=== PATIENT | male | born 1975 | race African-American/Black ===

== ENCOUNTER 2016-10-05 15:05 | Emergency (ER) | payer OTHER ==
[~2016-10-05] VITALS: Ht 165.1 cm; Wt 88.0 kg
[2016-10-05 15:12] VITALS: TEMP 36.9; Ht 165.1 cm; Wt 88.0 kg
[2016-10-05] MEDS ORDERED: GLIP10TA9 PO (15:28)
[2016-10-05] MEDS ORDERED: METF-384 PO (15:28)
[2016-10-05] MEDS ORDERED: SODIUM CHLORIDE 0.9% 1000ML 1,000 ML IV STA (15:31)
[2016-10-05] MEDS ORDERED: ACETAMINOPHEN 500 MG TAB PO STA (15:53)
[2016-10-05 16:05] LABS: BASO % 0.1 %; BASO ABS # 0.02 K/uL (0-0.2); COMPLETE YES; EOS % 0.1 %; HEMATOCRIT 42.9 % (42-52); IG% 0.4 %; LYMPH % 8.4 %; LYMPH ABS # 1.16 K/uL (1.2-3.4); MEAN CELL VOLUME 91.9 fL (80-100); MEAN CORPUSCULAR HEMOGLOBIN 31.5 pg (25-34); MEAN CORPUSCULAR HGB CONC 34.3 g/dl (32-36); MEAN PLATELET VOLUME 10.8 fL (7.4-10.4); PLATELET COUNT 315 K/uL (130-400); RED BLOOD COUNT 4.67 M/uL (4.7-6.1)
--- NOTE | 2016-10-05 16:11 | DIAGNOSTIC IMAGING REPORT ---
CT SCAN OF THE BRAIN WITHOUT IV CONTRAST CLINICAL HISTORY: Syncope. Head injury. COMPARISON STUDY: No priors. TECHNIQUE: Unenhanced axial CT scan of the brain is performed from the vertex to the skull base. Automated dose control exposure was utilized. CT DOSE: 786.10 mGy.cm FINDINGS: Brain parenchyma: The brain parenchyma is normal in appearance. There is no hemorrhage, mass effect, or evidence of acute territorial ischemia by CT criteria. Sotelo-white matter is preserved. No extra-axial fluid collection is seen. Ventricles, sulci, cisterns: Normal in configuration. Intracranial vasculature: The visualized intracranial vasculature at the skull base is normal in appearance. Calvarium: There is no depressed calvarial fracture. Soft tissues: Left facial soft tissue injury is partially visualized. A posterior scalp contusion is also identified. Sinuses and mastoids: There is subtotal opacification of the left maxillary antrum and several left ethmoid sinuses. A large air-fluid level is seen in the right maxillary antrum. The mastoid air cells are well pneumatized. Orbits: A left orbital floor fracture is suspected. The right orbits is intact as visualized. There are bilateral nasal bone fractures. IMPRESSION: 1. No acute intracranial abnormality. 2. There is no depressed calvarial fracture. 3. Suspect a left orbital floor fracture as well as bilateral nasal bone fractures. See report of CT scan of the facial bones performed concurrently for detailed facial bone findings. Electronically signed by: Julio Cesar Brown M.D. 10/05/2016 4:09 PM Dictated Date/Time: 10/05/2016 4:05 PM
[2016-10-05 16:21] LABS: ALT/SGPT 51 U/L (12-78); AST/SGOT 40 U/L (15-37); BLOOD UREA NITROGEN 10 mg/dl (7-18); BUN/CREATININE RATIO 10.2 (10-20); CALCIUM 9.3 mg/dl (8.5-10.1); CARBON DIOXIDE 32 mmol/L (21-32); CHLORIDE 104 mmol/L (98-107); CREATININE 0.99 mg/dl (0.60-1.40); GLUCOSE 172 mg/dl (70-99); MAGNESIUM 1.9 mg/dl (1.8-2.4); POTASSIUM 4.4 mmol/L (3.5-5.1); SODIUM 142 mmol/L (136-145)
--- NOTE | 2016-10-05 16:26 | DIAGNOSTIC IMAGING REPORT ---
CT SCAN OF THE FACIAL BONES WITHOUT IV CONTRAST CLINICAL HISTORY: Syncope. Nasal injury. COMPARISON STUDY: CT of the brain performed concurrently on 10/05/2016. TECHNIQUE: High-resolution CT scan of the facial bones is performed. Images are reviewed in the axial, sagittal, and coronal planes. IV contrast was not administered for this examination. CT DOSE: Reported separately under the concurrently performed CT scan of the brain. FINDINGS: The skeletal structures are well mineralized. There are minimally depressed and comminuted bilateral nasal bone fractures with overlying soft tissue edema. The bony nasal septum appears intact. There is a minimally depressed left orbital floor fracture. There is no herniation of orbital contents. Comminuted fracture also involves the lateral wall of the left orbit and extends through the anterior aspect of the zygomatic arch. There is also a nondistracted fracture of the mid left zygomatic arch. There is also likely fracture of the left lamina papyracea. There is comminuted fracture involving the anterior, medial, and posterior wall of the left maxillary antrum. The right bony orbit appears intact. There is trace stranding seen within the inferior extraconal fat of the left orbit, likely represent trace orbital hematoma. Orbital contents are otherwise normal in appearance. Comminuted fractures are seen involving the anterior, medial, and lateral mullen of the right maxillary antrum. There are minimally distracted fractures of the medial and lateral pterygoid plates on the right. The left pterygoid plates are preserved. The right zygomatic arch is maintained. There is fracture through the anterior alveolar ridge of the maxilla and through the base of the nasal processes of the maxilla. The mandible is intact. The central maxillary incisors are absent, as are the left central and lateral mandibular incisors. There is subtotal opacification of the left maxillary antrum, likely representing blood products. Blood is also seen within the right maxillary antrum with an air-fluid level. Fluid is seen within several left ethmoid sinuses. The mastoid air cells are well pneumatized. The visualized calvarium and upper cervical spine are maintained. Partially imaged brain parenchyma is within normal limits. An indeterminant linear metallic foreign body is seen along the interior margin the mandible. There is left temporal, left periorbital, and left premalar soft tissue contusion/hematoma. Small foci of subcutaneous gas are likely related to sinus fracture. Premalar contusion is also seen on the right. IMPRESSION: 1. There are comminuted and minimally depressed nasal bone fractures. 2. There is a complex left orbital fracture which involves the inferior, medial, and lateral mullen. 3. There is trace stranding suggested within the inferior extraconal fat of the left orbit which may represent trace orbital hematoma. 4. The right orbit is intact. 5. There are comminuted fractures involving the anterior, medial, and lateral mullen of both maxillary antra. Blood is present within both maxillary antra. 6. There are fractures of the left zygomatic arch. 7. There are minimally distracted fractures of the medial and lateral right pterygoid plates. 8. There is a minimally distracted fracture through the anterior alveolar ridge of the maxilla, as well as to the base of the nasal processes of the maxilla. 9. Facial soft tissue injuries/hematoma as above, left greater than right. 10. Several of the maxillary and mandibular incisors are absent as detailed above. This is of indeterminant chronicity. Clinical correlation will be required. 11. An indeterminant metallic wire is seen along the interior margin of the mandible. This may be related to previous dental surgery. Clinical correlation will be required. Electronically signed by: Julio Cesar Brown M.D. 10/05/2016 4:24 PM Dictated Date/Time: 10/05/2016 4:05 PM
[2016-10-05 16:32] LABS: ALB/GLOB RATIO 1.3 (0.9-2); ALKALINE PHOSPHATASE 61 U/L (45-117); THYROID STIMULATING HORMONE 0.314 uIu/ml (0.300-4.500)
--- NOTE | 2016-10-05 16:44 | DIAGNOSTIC IMAGING REPORT ---
SINGLE VIEW CHEST CLINICAL HISTORY: Syncope. FINDINGS: An AP, portable, upright chest radiograph is obtained. No prior studies are available for comparison at the time of dictation. The examination is degraded by portable technique and patient rotation. The cardiomediastinal silhouette is unremarkable. The lungs and pleural spaces are clear. No pneumothorax is seen. The bony thorax is grossly intact. IMPRESSION: No active disease in the chest. Electronically signed by: Julio Cesar Brown M.D. 10/05/2016 4:43 PM Dictated Date/Time: 10/05/2016 4:42 PM
[2016-10-05] MEDS ORDERED: MoRPHine SULFATE 10 MG/ML CARP/VIAL IV STA (17:25)
[2016-10-05] MEDS ORDERED: OPTIRAY 320 IV PRN (17:45)
--- NOTE | 2016-10-05 18:09 | DIAGNOSTIC IMAGING REPORT ---
CT SCAN OF THE CERVICAL SPINE CLINICAL HISTORY: Trauma. Syncope. COMPARISON STUDY: No priors. TECHNIQUE: CT scan of the cervical spine is performed from the skull base to the upper thoracic spine. Images are reviewed in the axial, sagittal, and coronal planes. IV contrast was not administered for this examination. FINDINGS: Skeletal structures: The skeletal structures are well mineralized. There is no evidence of fracture or subluxation involving the cervical spine. Vertebral body height and alignment are maintained. There is straightening of the cervical lordosis. The odontoid process and lateral masses are intact. The atlantoaxial articulation is preserved. The spinous processes appear intact. Tiny anterior osteophytes are seen at C5-C6. Intervertebral discs: There is minimal degenerative disc space narrowing at C6-C7 and C7-T1. The remaining disc spaces are well maintained. Central canal: Widely patent. Soft tissues: The prevertebral and paraspinous soft tissues are within normal limits. Calvarium: The visualized calvarium at the skull base appears intact. Brain parenchyma: Partially visualized brain parenchyma the skull base is within normal limits. Sinuses and mastoids: The visualized paranasal sinuses are clear. The mastoid air cells are well pneumatized. Lung apices: Clear as visualized. IMPRESSION: There is no evidence of fracture or subluxation involving the cervical spine. Electronically signed by: Julio Cesar Brown M.D. 10/05/2016 6:08 PM Dictated Date/Time: 10/05/2016 6:05 PM
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
[2016-10-05] MEDS ORDERED: AMOXICIL/CLAVU 875MG HOME PACK PO ONE (18:30)
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
[2016-10-05 19:00] VITALS: BP 160/86; PULSE 79; O2SAT 98
== END 2016-10-05 19:00 | disposition home or self-care (01) ==
LOC: C.EDB 15:09 → C.EDC 19:00
DX: S02.32XA Fracture of orbital floor, left side, initial encounter for closed fracture (principal); S02.92XA Unspecified fracture of facial bones, initial encounter for closed fracture; W22.8XXA Striking against or struck by other objects, initial encounter; R04.0 Epistaxis; Z79.84 Long term (current) use of oral hypoglycemic drugs; Z91.018 Allergy to other foods